=== PATIENT | female | born 1985 | race Native Hawaiian/Other Pacific Islander ===

== ENCOUNTER 2018-05-18 01:51 | Observation (INO) | payer MEDICAID ==
[~2018-05-18] VITALS: Ht 160 cm; Wt 54.4 kg
[2018-05-18] MEDS ORDERED: PREN-96 PO (02:27)
[2018-05-18] MEDS ORDERED: CHOL20007 PO (02:27)
[2018-05-18] MEDS ORDERED: CYA100I IM (02:27)
[2018-05-18] MEDS ORDERED: TERBUTALINE SULFATE 1 MG/ML 1ML VIAL SC ONE ×2 (03:00)
== END 2018-05-18 04:05 | disposition home or self-care (01) | DRG 566 ==
LOC: LDRP 01:51
PROVIDERS: ADMIT Specialist; ATTEND Specialist
DX: O26.892 Other specified pregnancy related conditions, second trimester (principal); R10.30 Lower abdominal pain, unspecified; Z3A.21 21 weeks gestation of pregnancy
CPT/HCPCS: 59025; 81002; 96372; G0378; J3105